=== PATIENT | male | born 1935 | race Caucasian/White ===

== ENCOUNTER → 2022-08-25 08:09 | Outpatient (BNVA) | payer MEDICARE, SELFPAY | PROVIDERS: Referring Provider Nurse Practitioner Family; Visit Provider Dermatology | DX: C44.42 Squamous cell carcinoma of skin of scalp and neck (principal) | CPT/HCPCS: 13121; 17311 ==

== ENCOUNTER → 2022-09-09 14:29 | Outpatient (BNVA) | payer MEDICARE, SELFPAY | PROVIDERS: Visit Provider Dermatology | DX: L57.0 Actinic keratosis (principal); Z48.02 Encounter for removal of sutures | CPT/HCPCS: 17000; 17003; 99213 ==

== ENCOUNTER → 2022-12-02 14:47 | Outpatient (BNVA) | payer MEDICARE, SELFPAY | PROVIDERS: Visit Provider Internal Medicine Cardiovascular Disease | DX: R07.9 Chest pain, unspecified (principal); R06.02 Shortness of breath; Z79.01 Long term (current) use of anticoagulants; Z82.49 Family history of ischemic heart disease and other diseases of the circulatory system; E11.9 Type 2 diabetes mellitus without complications; I10 Essential (primary) hypertension; R00.0 Tachycardia, unspecified; D50.9 Iron deficiency anemia, unspecified; E78.00 Pure hypercholesterolemia, unspecified | CPT/HCPCS: 80048; 83880; 85025; 93005; 99205 ==

== ENCOUNTER 2022-12-03 09:19 | Outpatient (CLI) | payer MEDICARE, SELFPAY ==
--- NOTE | 2022-12-03 10:00 | USCV_ITS ---
Lukas Nicole Age: 87 Gender: M : 1935 Exam Date: 12/03/2022 09:55 Ordering Phys: Cee Simpson MD ([email or web address]) Technologist: Reggie White Exam Location: [facility] Indication: chest pain BP: 120 / 70 HR: 97 Rhythm: Sinus Technical Quality: Adequate MEASUREMENTS (Male / Female) Normal Values 2D ECHO LV Diastolic Diameter PLAX 4.5 cm 4.2 - 5.9 / 3.9 - 5.3 cm LV Systolic Diameter PLAX 2.6 cm IVS Diastolic Thickness 1.4 cm 0.6 - 1.0 / 0.6 - 0.9 cm IVS Systolic Thickness 2.2 cm LVPW Diastolic Thickness 1.5 cm 0.6 - 1.0 / 0.6 - 0.9 cm LVPW Systolic Thickness 2.1 cm LVOT Diameter 2.0 cm LV Ejection Fraction 2D Teich 74.1 % LA Diameter 4.2 cm Aorta at Sinotubular Diameter 2.9 cm M-MODE Aortic Annulus Diameter 4.3 cm LA Ao Ratio MM 1.0 MV E Point Septal Separation 0.8 cm DOPPLER AV Peak Velocity 141.0 cm/s LVOT Peak Velocity 84.0 cm/s AV Area Cont Eq vti 2.0 cm squared AV Area Cont Eq pk 1.9 cm squared TR Peak Velocity 145.0 cm/s TR Peak Gradient 8.4 mmHg TV Peak E Velocity 149.0 cm/s Right Atrial Pressure 3.0 mmHg Pulmonary Artery Systolic Pressu 11.4 mmHg RV Acceleration Time 0.1 s FINDINGS Left Ventricle Normal left ventricular size and systolic function, EF 74%.moderate left ventricular hypertrophy. No regional wall motion abnormalities. Right Ventricle The right ventricle is normal in size and function. Right Atrium The right atrium is normal in size. Left Atrium The left atrium is normal in size. Mitral Valve Minimally thickened Aortic Valve Thickened aortic valve. Tricuspid Valve Minimally thickened .. Pulmonic Valve No gross abnormalities noted Pericardium Normal pericardium without effusion. Aorta Normal ascending aorta dimension. IVC The inferior vena cava appears normal. CONCLUSIONS Normal left ventricular size and systolic function, EF 74%.moderate left ventricular hypertrophy. No regional wall motion abnormalities. Thickened aortic and mitral valves Normal cardiac chamber sizes. Normal RV size ejection fraction. There is no pericardial effusion. No similar previous studies are available for comparison Dr Cee Simpson MD FAC (Electronically Signed) Final Date: 03 December 2022 16:49 S
== END 2022-12-03 09:20 | disposition home or self-care (01) ==
PROVIDERS: Visit Provider Internal Medicine Cardiovascular Disease
DX: R06.09 Other forms of dyspnea (principal); R07.9 Chest pain, unspecified; I08.0 Rheumatic disorders of both mitral and aortic valves
CPT/HCPCS: 93306

== ENCOUNTER 2022-12-04 11:19 | Outpatient (CLI) | payer MEDICARE, SELFPAY ==
[2022-12-04 12:05] LABS: D Dimer 1.08 ug/mLFEU (0-0.59)
[2022-12-04 12:11] LABS: Troponin T (5th) Once 37 ng/L (0-15)
--- NOTE | 2022-12-04 15:45 | CTR_ITS ---
PROCEDURE INFORMATION: Exam: CTA Chest With Contrast Exam date and time: 12/04/2022 3:47 PM Age: 87 years old Clinical indication: Abnormal findings; Abnormal diagnostic tests; Elevated d-dimer; Shortness of breath; Additional info: Chest pain, SOB TECHNIQUE: Imaging protocol: Computed tomographic angiography of the chest with contrast. Exam focused on the arteries. 3D rendering (Not supervised by radiologist): MIP and/or 3D reconstructed images were created by the technologist. Radiation optimization: All CT scans at this facility use at least one of these dose optimization techniques: automated exposure control; mA and/or kV adjustment per patient size (includes targeted exams where dose is matched to clinical indication); or iterative reconstruction. Contrast material: OMNI 350; Contrast volume: 95 ml; Contrast route: INTRAVENOUS (IV); REPORTING DATA: Count of CT and Cardiac NM exams in prior 12 months: This patient has received 0 known CTs and 0 known cardiac nuclear medicine studies in the 12 months prior to the current study. COMPARISON: No relevant prior studies available. RADIATION DOSE METRICS: Total DLP (mGy-cm): 442.41 FINDINGS: Pulmonary arteries: Pulmonary vasculature is adequately opacified without filling defects or other evidence of acute pulmonary embolism. Aorta: Scattered atherosclerotic changes of the thoracic aorta. No aortic aneurysm. Lungs: Lung volumes are decreased with mild hypoventilatory changes at the lung bases. No infiltrates or nguyễn pulmonary edema. Pleural spaces: Unremarkable. No pneumothorax. No pleural effusion. Heart: Heart is mildly enlarged. Moderate calcification of coronary arteries. No significant pericardial effusion. Mediastinal space: Scattered mediastinal calcifications secondary to chronic granulomatous disease. Multiple small mediastinal lymph nodes likely benign based on size criteria. Lymph nodes: See Mediastinal space finding. Liver: Liver has a cirrhotic contour. Gallbladder and bile ducts: Multiple gallstones partially visualized. Spleen: Spleen is partially visualized, enlarged. Bones/joints: Degenerative changes both shoulder joints with loose bodies present. Prominent degenerative changes both sternoclavicular joints with numerous loose bodies. Soft tissues: Unremarkable. CT/CT angio chest PE protcl [id number] IMPRESSION: 1. Negative CT angiogram of the chest. No evidence of acute pulmonary embolism. 2. Multiple additional chronic findings as above.
== END 2022-12-04 11:20 | disposition home or self-care (01) ==
PROVIDERS: Visit Provider Internal Medicine Cardiovascular Disease
DX: R00.0 Tachycardia, unspecified (principal); R06.02 Shortness of breath; R07.89 Other chest pain; R79.1 Abnormal coagulation profile; I10 Essential (primary) hypertension; I25.10 Atherosclerotic heart disease of native coronary artery without angina pectoris
CPT/HCPCS: 36415; 71275; 84484; 85378; Q9967

== ENCOUNTER 2022-12-21 00:19 | Emergency (ER) | payer MEDICARE, SELFPAY ==
[2022-12-21] VITALS (30 sets, daily range): BP systolic 88–148; BP diastolic 48–92; PULSE 87–133; RESP 13–34; TEMP 36.9; O2SAT 89–100; BMI 32.1
--- NOTE | 2022-12-21 00:21 | XRR_ITS ---
PROCEDURE INFORMATION: Exam: XR Chest Exam date and time: 12/21/2022 12:26 AM Age: 87 years old Clinical indication: Chest pressure; Patient HX: C/O chest pain TECHNIQUE: Imaging protocol: Radiologic exam of the chest. Views: 1 view. COMPARISON: CT angio chest PE protcl [id number] 12/04/2022 3:47 PM FINDINGS: Lungs: Unremarkable. No consolidation. Pleural spaces: Unremarkable. No pleural effusion. No pneumothorax. Heart/Mediastinum: Mild cardiomegaly. Bones/joints: Unremarkable. XR/XR chest 1V portable [id number] IMPRESSION: Mild cardiomegaly.
--- NOTE | 2022-12-21 00:30 | ECG_ITS ---
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 Measurements Intervals Ashley Rate: 116 P: 0 VT: 0 QRS: -28 QRSD: 158 T: 0 QT: 295 QTc: 410 Interpretive Statements ATRIAL FLUTTER/TACHYCARDIA WITH RAPID VENTRICULAR RESPONSE INDETERMINATE AXIS RIGHT BUNDLE BRANCH BLOCK [120+ ms QRS DURATION, UPRIGHT V1, 40+ ms S IN I/aVL/V4/V5/V6] Compared to ECG 12/02/2022 15:02:35 No significant changes Electronically Signed On 12-21-2022 10:56:35 CDT by Bakari Peoples M.D. [id number]
[2022-12-21 00:45] LABS: Basophils # 0.1 10^3/uL (0.0-0.1); Basophils % 0.5 %; Eosinophils # 0.2 10^3/uL (0.0-0.8); Eosinophils % 2.1 %; Lymphocytes # 3.4 10^3/uL (0.8-4.8); Lymphocytes % 32.9 %; Mean Corpuscular HGB Conc 30.7 g/dL (30-55); Mean Corpuscular Hemoglobin 28.1 pg (27-33); Mean Corpuscular Volume 91.4 fl (82-101); Mean Platelet Volume 10.7 fL (7.4-10.4); Monocytes # 0.8 10^3/uL (0.2-0.9); Monocytes % 8.1 %; Neutrophils # 5.69 10^3/uL (1.8-7.7); Neutrophils % 55.6 %; Nucleated Red Blood Cells % 0.2 %; Platelet Count 129 10^3/cmm (157-399); Red Blood Count 2.21 10^6/uL (3.85-5.65); Red Cell Distribution Width 19.2 % (12.1-15.1); White Blood Count 10.22 10^3/uL (3.29-11.43)
--- NOTE | 2022-12-21 01:02 | ECG_ITS ---
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 Measurements Intervals Thornton Rate: 106 P: -61 IN: 190 QRS: -29 QRSD: 156 T: 13 QT: 388 QTc: 517 Interpretive Statements SINUS TACHYCARDIA INDETERMINATE AXIS RIGHT BUNDLE BRANCH BLOCK [120+ ms QRS DURATION, UPRIGHT V1, 40+ ms S IN I/aVL/V4/V5/V6] INTERPRETATION BASED ON A DEFAULT AGE OF 40 YEARS Compared to ECG 12/21/2022 00:30:00 Atrial flutter no longer present Electronically Signed On 12-21-2022 10:54:40 CDT by Bakari Peoples M.D. [id number]
[2022-12-21 01:03] LABS: Hematocrit 20.2 % (37-53)
--- NOTE | 2022-12-21 01:04 | CTR_ITS ---
PROCEDURE INFORMATION: Exam: CTA Chest With Contrast Exam date and time: 12/21/2022 1:27 AM Age: 87 years old Clinical indication: Pain and abnormal findings; Abnormal lab test; Other: Low hemoglobin/hematocrit; Hypotension; Other: Hematoemesis. Patient HX: Patient initially presented to er with chest heaviness. While in er became suddenely hypotensive with a witnessed episode of hematemesis. Hemoglobin of 6.2 and hematocrit of 20.2; Additional info: Anemia, chest and abd pain TECHNIQUE: Imaging protocol: Computed tomographic angiography of the chest with contrast. Exam focused on the arteries. 3D rendering (Not supervised by radiologist): MIP and/or 3D reconstructed images were created by the technologist. Radiation optimization: All CT scans at this facility use at least one of these dose optimization techniques: automated exposure control; mA and/or kV adjustment per patient size (includes targeted exams where dose is matched to clinical indication); or iterative reconstruction. REPORTING DATA: Count of CT and Cardiac NM exams in prior 12 months: This patient has received [address] and 0 known cardiac nuclear medicine studies in the 12 months prior to the current study. COMPARISON: CT angio chest PE [facility] [id number] 12/04/2022 3:47 PM FINDINGS: Pulmonary arteries: Normal. No pulmonary emboli. Aorta: Unremarkable. No aortic aneurysm. No aortic dissection. Lungs: Unremarkable. No consolidation. No masses. Pleural spaces: Unremarkable. No pneumothorax. No pleural effusion. Heart: Mild cardiomegaly. Coronary arteries: Multivessel atherosclerotic disease which involves the coronary arteries. Lymph nodes: Unremarkable. No enlarged lymph nodes. Intraperitoneal space: Please see the CT scan of the abdomen for description of the upper abdomen. Bones/joints: Unremarkable. No acute fracture. Soft tissues: Unremarkable. CT/CT [facility] [id number] IMPRESSION: 1. Multivessel atherosclerotic disease which involves the coronary arteries. 2. Mild cardiomegaly. 3. No evidence for pulmonary embolus.
[2022-12-21 01:08] LABS: Troponin(5th) Baseline 47 ng/L (0-15)
--- NOTE | 2022-12-21 01:14 | ED_ITS ---
Documented by User: ALEX Garcia 12/21/22 01:22 HPI - Chest Pain General: Chief Complaint: Chest Pain Stated Complaint: CP Time Seen by Provider: 12/21/22 00:21 History of Present Illness: Lukas Nicole is an 87-year-old male who presents to the emergency department this evening with complaints of palpitations, chest pain, shortness of breath. Reports he has had increasing fatigue and weakness over the last month. He has been evaluated by cardiology?Dr. Simpson and has follow-up scheduled for Thursday. Patient notes that this evening he was trying to get up with the assistance of his and he fell backwards. He landed on the bed and denies striking his head. Patient had atrial fibrillation RVR noted on the monitor in route with EMS. His pulse is currently in the 130s. He has a history of diabetes, GERD, high cholesterol, hypertension, CVA, squamous cell carcinoma, cardiovascular disease, and possible heart failure Associated symptoms: Reports dyspnea, nausea and palpitations; Deny abdominal pain, fever(s) or vomiting Risk Factors: Coronary artery disease risk factors: diabetes, hyperlipidemia and hypertension Thoracic aortic dissection risk factors: longstanding hypertension Pulmonary embolism risk factors: immobilization Review of Systems General: Reports: 10 or more systems reviewed and unremarkable except in HPI and below Const: Reports: change in appetite, change in weight, fatigue, malaise and change in sleep pattern; Denies: fever(s) or chills Eyes: Denies: change in vision, eye discomfort, eye discharge or eye redness ENMT: Denies: throat pain, enlarged tonsils, odynophagia, hoarseness, ear or mastoid pain, ear discharge, change in hearing, tinnitus, nasal discharge, nasal congestion, post nasal drip or sinus pain Card: Reports: palpitations, irregular heart rhythm, edema, dyspnea on exertion and orthopnea; Denies: chest pain or leg pain with exertion Resp: Reports: dyspnea; Denies: productive cough, non-productive cough, wheezing, stridor or chest congestion GI: Reports: nausea; Denies: abdominal pain, vomiting, dysphagia, diarrhea, constipation, bloating, GI cramping or hematochezia : Denies: flank pain, dysuria, urinary frequency, urinary urgency, urinary hesitancy, oliguria or hematuria Musc: Denies: neck pain, back pain, extremity pain, joint pain, joint swelling, joint redness, joint warmth or muscle weakness Skin/Breast: Denies: rash, pruritus, erythema, photosensitivity or new lesions Neuro: Denies: headache(s), numbness in extremities, weakness in extremities, sensory changes, lack of coordination, difficulty walking, frequent falls, dizziness, confusion, Slurred speech present, difficulty communicating thoughts, seizure-like activity or involuntary movements Endo: Denies: polyuria, polydipsia or tired all the time Rodriguez/Lymph: Denies: easy bruising or easy bleeding PFSH ED PFSH: Medical History (Updated 12/21/22 @ 03:01 by Ashish Sampson DO) Degenerative joint disease Diabetes Gall stones GERD (gastroesophageal reflux disease) Hearing reduced High cholesterol Hypertension Inflammatory arthritis Squamous cell carcinoma Unspecified cerebral artery occlusion with cerebral infarction Unspecified disorder of prostate Surgical History (Updated 12/02/22 @ 15:37 by Cee Simpson MD) History of back surgery 1974 Hx of hand surgery Physical Exam Const: COMMON NORMALS: no acute distress, patient oriented x3 and alert GENERAL APPEARANCE: cooperative ORIENTATION/CONSCIOUSNESS: Yes awake, Yes oriented to person, Yes oriented to place and Yes oriented to time HENMT: COMMON NORMALS: normocephalic and atraumatic HEAD & SCALP: normocephalic and atraumatic FACE & SINUS: normal facial exam Eye: COMMON NORMALS: Equal, round and reactive pupils present and EOMs intact bilaterally GENERAL EYE: appearance normal, both eyes and all related structures ALIGNMENT: Yes alignment normal PERIORBITAL: periorbital findings normal PUPIL: Yes Equal, round and reactive pupils present Neck/C-Spine: COMMON NORMALS: full ROM GENERAL: Yes normal visual inspection Lymph: LYMPHATIC: no lymphadenopathy noted Chest: COMMONS NORMALS: normal inspection of the chest Breast/axilla inspection: Yes no chest deformity, asymmetry, normal contours, no nodules, masses, tenderness Resp: EFFORT & INSPECTION: Yes symmetric chest movement, Yes tachypneic, Yes respiratory distress and Yes uses accessory muscles AUSCULTATION: diminished lung sounds diffuse Cardio: COMMON NORMALS: Peripheral pulses 2+ throughout RATE: tachycardic RHYTHM: abnormal rhythm PERIPHERAL PULSES: Peripheral pulses 2+ throughout GI: COMMON NORMALS: Normal to inspection, nondistended, normoactive bowel sounds present, Soft to palpation, non-tender and No hepatosplenomegaly present INSPECTION: Yes normal to inspection AUSCULTATION: Yes normoactive bowel sounds PALPATION: Yes Soft to palpation and Yes No hepatosplenomegaly present RECTAL EXAM: Yes deferred Extremity: COMMON NORMALS: normal to inspection GENERAL: Yes normal exam except as noted Neuro: COMMON NORMALS: patient oriented x3 SENSORIUM/ORIENTATION: Yes alert, Yes oriented to person, Yes oriented to place and Yes oriented to time CRANIAL NERVES: Yes CN normal except as noted Psych: COMMON NORMALS: mental status grossly normal, Normal thought process present, cooperative, activity/motor behavior normal, denies homicidal ideation and denies suicidal ideation THOUGHT PROCESS: Normal thought process present Skin: COMMON NORMALS: no rashes or lesions noted, no wounds and turgor normal GENERAL SKIN EXAM: no rashes or lesions noted and turgor normal Course Vital Signs: Vital signs: Vital Signs Temperature 98.5 F 12/21/22 00:44 Pulse Rate 98 12/21/22 04:15 Respiratory Rate 23 H 12/21/22 04:15 Blood Pressure 126/70 12/21/22 04:15 Pulse Oximetry 97 12/21/22 04:10 Oxygen Delivery Me thod Nasal Cannula 12/21/22 02:10 Oxygen Flow Rate 4 12/21/22 02:10 MDM - Chest Pain Medical Decision Making Differential diagnosis included unstable angina, AMI, A fib with RVR, heart failure, Transferring care to Dr. Sampson Lab Data 12/21/22 00:38 12/21/22 00:38 Radiology Impressions Chest/Abdomen/Pelvis CTA 12/21/22 01:04 IMPRESSION: 1. Multivessel atherosclerotic disease which involves the coronary arteries. 2. Mild cardiomegaly. 3. No evidence for pulmonary embolus. Chest X-Ray 12/21/22 02:15 IMPRESSION: 1. Tip of the central venous catheter projects over the right atrium. 2. Cardiomegaly. Laboratory Results WBC 10.22 10^3/uL (3.29-11.43) 12/21/22 00:38 RBC 2.21 10^6/uL (3.85-5.65) L 12/21/22 00:38 Hgb 6.20 g/dL (11.27-16.99) L* 12/21/22 00:38 Hct 20.2 % (37-53) L* 12/21/22 00:38 MCV 91.4 fl (82-101) 12/21/22 00:38 MCH 28.1 pg (27-33) 12/21/22 00:38 MCHC 30.7 g/dL (30-55) 12/21/22 00:38 RDW 19.2 % (12.1-15.1) H 12/21/22 00:38 Plt Count 129 10^3/cmm (157-399) L 12/21/22 00:38 MPV 10.7 fL (7.4-10.4) H 12/21/22 00:38 Neut % (Auto) 55.6 % 12/21/22 00:38 Lymph % (Auto) 32.9 % 12/21/22 00:38 [place] % (Auto) 8.1 % 12/21/22 00:38 Eos % (Auto) 2.1 % 12/21/22 00:38 Baso % (Auto) 0.5 % 12/21/22 00:38 Neut # (Auto) 5.69 10^3/uL (1.8-7.7) 12/21/22 00:38 Lymph # (Auto) 3.4 10^3/uL (0.8-4.8) 12/21/22 00:38 [place] # (Auto) 0.8 10^3/uL (0.2-0.9) 12/21/22 00:38 Eos # (Auto) 0.2 10^3/uL (0.0-0.8) 12/21/22 00:38 Baso # (Auto) 0.1 10^3/uL (0.0-0.1) 12/21/22 00:38 Nucleated RBC % (auto) 0.2 % 12/21/22 00:38 Nucleated RBCs # 0.0 /100WBC 12/21/22 00:38 PT 18.50 SECONDS (12.1-14.9) H 12/21/22 00:54 INR 1.49 (0.8-1.2) H 12/21/22 00:54 APTT 40.3 SECONDS (23.9-36.7) H 12/21/22 00:54 D-Dimer 0.81 ug/mLFEU (0-0.59) H 12/21/22 00:54 Sodium 139 mmol/L (136-145) 12/21/22 00:38 Potassium 4.1 mmol/L (3.5-5.1) 12/21/22 00:38 Chloride 100 mmol/L (98-107) 12/21/22 00:38 Carbon Dioxide 21 mmol/L (22-29) L 12/21/22 00:38 Anion Gap 22.1 (5-19) H 12/21/22 00:38 BUN 71 mg/dL (8-23) H 12/21/22 00:38 Creatinine 1.1 mg/dL (0.7-1.2) 12/21/22 00:38 GFR Calculation Not Reportable 12/21/22 00:38 Glucose 105 mg/dL (65-115) 12/21/22 00:38 Calculated Osmolality 309 mOsm/kg (285-295) H 12/21/22 00:38 Calcium 9.1 mg/dL (8.5-10.5) 12/21/22 00:38 Total Bilirubin 0.2 mg/dL (0.15-1.2) 12/21/22 00:38 AST 18 U/L (0-40) 12/21/22 00:38 ALT 9 U/L (0-41) 12/21/22 00:38 Alkaline Phosphatase 65 U/L (40-130) 12/21/22 00:38 Troponin T Baseline 47 ng/L (0-15) H 12/21/22 00:38 Troponin T 120 Minute 43.53 ng/L (0-15) H 12/21/22 02:10 Delta Troponin T -3.47 ABS# (0-10) L 12/21/22 02:10 NT-Pro-B Natriuret Pep 989 pg/mL (0-450) H 12/21/22 00:38 Total Protein 7.6 g/dL (6.6-8.7) 12/21/22 00:38 Albumin 2.7 g/dL (3.5-5.2) L 12/21/22 00:38 Globulin 4.9 g/dL (1.3-4.6) H 12/21/22 00:38 Blood Type A Positive 12/21/22 03:28 Rho(D) Type Positive 12/21/22 03:28 Antibody Screen Negative 12/21/22 03:28 Crossmatch See Detail 12/21/22 03:28 Discharge Plan Discharge Patient Disposition: Xfer Short-Term Hosp Clinical Impression: Acute upper gastrointestinal bleeding Condition: Critical Referrals: Kristen Addison FNP [Primary Care Provider] - Coding Level of Care Code ED General Manager [employer] for Chg Fwd Documented by User: Ashish Sampson DO 12/21/22 05:53 HPI - Chest Pain General: Chief Complaint: Chest Pain Stated Complaint: CP Time Seen by Provider: 12/21/22 00:21 PFSH ED PFSH: Medical History (Updated 12/21/22 @ 03:01 by Ashish Sampson DO) Degenerative joint disease Diabetes Gall stones GERD (gastroesophageal reflux disease) Hearing reduced High cholesterol Hypertension Inflammatory arthritis Squamous cell carcinoma Unspecified cerebral artery occlusion with cerebral infarction Unspecified disorder of prostate Surgical History (Updated 12/02/22 @ 15:37 by Cee Simpson MD) History of back surgery 1975 Hx of hand surgery Procedures Central Line Placement Right IJ: Time Out Performed: Yes Patient Placed on Monitor/Pulse Ox: Yes Prep: mask, gown and gloves Central Line Prep: Chlorhexidine scrub and sterile drapes applied Local Anesthetic: lidocaine 1% Ultrasound Used for Placement: Yes Central Line Lumen Inserted: triple Post Procedure: sutured in place, good blood return, all ports aspirated, flushed, capped and sterile dressing applied Post Procedure X-Ray: tip of catheter in good position and no pneumothorax seen Patient Tolerated Procedure: well and no complications Complications: none Course Vital Signs: Vital signs: Vital Signs Temperature 98.5 F 12/21/22 00:44 Pulse Rate 98 12/21/22 04:15 Respiratory Rate 23 H 12/21/22 04:15 Blood Pressure 126/70 12/21/22 04:15 Pulse Oximetry 97 12/21/22 04:10 Oxygen Delivery Me thod Nasal Cannula 12/21/22 02:10 Oxygen Flow Rate 4 12/21/22 02:10 MDM - Chest Pain Medical Decision Making Differential diagnosis included unstable angina, AMI, A fib with RVR, heart failure, Transferring care to Dr. Sampson 87-year-old gentleman originally seen by MIGUEL ÁNGEL Bullock. I agree with her history, evaluation, and initial treatment. Shortly after his evaluation by her, the patient alarmed with a low blood pressure. He then threw up coffee- ground black emesis. There was quite a bit of volume. His airway was suctioned. He remained awake and alert. He did this again, and again was suctioned. Lab called with a critical value of a hemoglobin of 6.2. Following the second episode of emesis, his heart rate fell and the patient briefly became nonresponsive. We have had a discussion with the patient and his about resuscitation. He did not want to be resuscitated with chest compressions or ventilatory support. She agreed with this. When his heart rate fell below 40, 1 mg of epinephrine was given. The patient remained nonresponsive for several seconds, but maintained his oxygenation above 90%. Shortly thereafter, his heart rate increased, and he was started at that point on norepinephrine drip to support blood pressure and heart rate. He is remained awake and alert since that time. Central line was placed. He has received 1 unit of O- blood. Receiving a second. He is received 80 mg of Protonix, octreotide, and tranexamic acid. CTA of the chest abdomen pelvis was performed. It did not show a source of the bleeding. Several nonacute findings were listed. We do not have gastroenterology available at this facility. Both facilities in [place] are on diversion. We have spoken with the transfer center at [facility]. Their critical care team is to call back. Patient has been accepted at [facility]. He is going by air transport. On departure, the patient is awake alert and talking. He did have around 1.5 L of output from his NG tube. Lab Data 12/21/22 00:38 12/21/22 00:38 Radiology Impressions Chest/Abdomen/Pelvis CTA 12/21/22 01:04 IMPRESSION: 1. Multivessel atherosclerotic disease which involves the coronary arteries. 2. Mild cardiomegaly. 3. No evidence for pulmonary embolus. Chest X-Ray 12/21/22 02:15 IMPRESSION: 1. Tip of the central venous catheter projects over the right atrium. 2. Cardiomegaly. Laboratory Results WBC 10.22 10^3/uL (3.29-11.43) 12/21/22 00:38 RBC 2.21 10^6/uL (3.85-5.65) L 12/21/22 00:38 Hgb 6.20 g/dL (11.27-16.99) L* 12/21/22 00:38 Hct 20.2 % (37-53) L* 12/21/22 00:38 MCV 91.4 fl (82-101) 12/21/22 00:38 MCH 28.1 pg (27-33) 12/21/22 00:38 MCHC 30.7 g/dL (30-55) 12/21/22 00:38 RDW 19.2 % (12.1-15.1) H 12/21/22 00:38 Plt Count 129 10^3/cmm (157-399) L 12/21/22 00:38 MPV 10.7 fL (7.4-10.4) H 12/21/22 00:38 Neut % (Auto) 55.6 % 12/21/22 00:38 Lymph % (Auto) 32.9 % 12/21/22 00:38 [place] % (Auto) 8.1 % 12/21/22 00:38 Eos % (Auto) 2.1 % 12/21/22 00:38 Baso % (Auto) 0.5 % 12/21/22 00:38 Neut # (Auto) 5.69 10^3/uL (1.8-7.7) 12/21/22 00:38 Lymph # (Auto) 3.4 10^3/uL (0.8-4.8) 12/21/22 00:38 [place] # (Auto) 0.8 10^3/uL (0.2-0.9) 12/21/22 00:38 Eos # (Auto) 0.2 10^3/uL (0.0-0.8) 12/21/22 00:38 Baso # (Auto) 0.1 10^3/uL (0.0-0.1) 12/21/22 00:38 Nucleated RBC % (auto) 0.2 % 12/21/22 00:38 Nucleated RBCs # 0.0 /100WBC 12/21/22 00:38 PT 18.50 SECONDS (12.1-14.9) H 12/21/22 00:54 INR 1.49 (0.8-1.2) H 12/21/22 00:54 APTT 40.3 SECONDS (23.9-36.7) H 12/21/22 00:54 D-Dimer 0.81 ug/mLFEU (0-0.59) H 12/21/22 00:54 Sodium 139 mmol/L (136-145) 12/21/22 00:38 Potassium 4.1 mmol/L (3.5-5.1) 12/21/22 00:38 Chloride 100 mmol/L (98-107) 12/21/22 00:38 Carbon Dioxide 21 mmol/L (22-29) L 12/21/22 00:38 Anion Gap 22.1 (5-19) H 12/21/22 00:38 BUN 71 mg/dL (8-23) H 12/21/22 00:38 Creatinine 1.1 mg/dL (0.7-1.2) 12/21/22 00:38 GFR Calculation Not Reportable 12/21/22 00:38 Glucose 105 mg/dL (65-115) 12/21/22 00:38 Calculated Osmolality 309 mOsm/kg (285-295) H 12/21/22 00:38 Calcium 9.1 mg/dL (8.5-10.5) 12/21/22 00:38 Total Bilirubin 0.2 mg/dL (0.15-1.2) 12/21/22 00:38 AST 18 U/L (0-40) 12/21/22 00:38 ALT 9 U/L (0-41) 12/21/22 00:38 Alkaline Phosphatase 65 U/L (40-130) 12/21/22 00:38 Troponin T Baseline 47 ng/L (0-15) H 12/21/22 00:38 Troponin T 120 Minute 43.53 ng/L (0-15) H 12/21/22 02:10 Delta Troponin T -3.47 ABS# (0-10) L 12/21/22 02:10 NT-Pro-B Natriuret Pep 989 pg/mL (0-450) H 12/21/22 00:38 Total Protein 7.6 g/dL (6.6-8.7) 12/21/22 00:38 Albumin 2.7 g/dL (3.5-5.2) L 12/21/22 00:38 Globulin 4.9 g/dL (1.3-4.6) H 12/21/22 00:38 Blood Type A Positive 12/21/22 03:28 Rho(D) Type Positive 12/21/22 03:28 Antibody Screen Negative 12/21/22 03:28 Crossmatch See Detail 12/21/22 03:28 Critical Care Time Critical Care Time: Critical Care Time: Yes Total Critical Care Time: 60 Attestation: This case had a high probability of a clinically significant, sudden, or life threatening deterioration of this patient's condition which required my full and direct attention, intervention and personal management. Time excludes any procedures performed such as central line placement. Discharge Plan Discharge Patient Disposition: Xfer Short-Term Hosp Clinical Impression: Acute upper gastrointestinal bleeding Condition: Critical Referrals: Kristen Addison FNP [Primary Care Provider] - Coding Level of Care Code ED General Manager [employer] for Ronaldo Lucas
[2022-12-21] MEDS: sodium chloride 0.9% 1,000 ML 999 ML IV (01:15)
[2022-12-21 01:18] LABS: Alanine Aminotransferase 9 U/L (0-41); Albumin Level 2.7 g/dL (3.5-5.2); Alkaline Phosphatase 65 U/L (40-130); Anion Gap 22.1 (5-19); Aspartate Amino Transferase 18 U/L (0-40); Blood Urea Nitrogen 71 mg/dL (8-23); Calcium 9.1 mg/dL (8.5-10.5); Carbon Dioxide 21 mmol/L (22-29); Chloride 100 mmol/L (98-107); Globulin 4.9 g/dL (1.3-4.6); Glucose 105 mg/dL (65-115); NT Pro B Type Natriuretic Pept 989 pg/mL (0-450); Osmolality Calculated 309 mOsm/kg (285-295); Potassium 4.1 mmol/L (3.5-5.1); Sodium 139 mmol/L (136-145); Total Bilirubin 0.2 mg/dL (0.15-1.2); Total Protein 7.6 g/dL (6.6-8.7)
[2022-12-21] MEDS: ondansetron 2 mg/ML SDV 2 mL 8 MG IVP (01:25)
[2022-12-21] MEDS: iohexol 350 mg/mL 500 mL Btl (per mL) IV (01:41)
[2022-12-21] MEDS: EPINEPHrine 0.1 mg/mL SYR 10 mL IVP (01:44)
[2022-12-21] MEDS: sodium chloride 0.9% 100 mL Bag 50 ML IV (01:58)
--- NOTE | 2022-12-21 02:15 | XRR_ITS ---
PROCEDURE INFORMATION: Exam: XR Chest Exam date and time: 12/21/2022 2:17 AM Age: 87 years old Clinical indication: Other vascular access device placement or adjustment; Central line, tunnelled; Patient HX: Check S/P central line placement TECHNIQUE: Imaging protocol: Radiologic exam of the chest. Views: 1 view. COMPARISON: CR (CHEST, ) 12/21/2022 12:26 AM FINDINGS: Tubes, catheters and devices: Tip of the central venous catheter projects over the right atrium. A G-tube passes below the hemidiaphragms. Lungs: Unremarkable. No consolidation. Pleural spaces: Unremarkable. No pleural effusion. No pneumothorax. Heart/Mediastinum: Cardiomegaly. Bones/joints: Unremarkable. XR/XR chest 1V portable [id number] IMPRESSION: 1. Tip of the central venous catheter projects over the right atrium. 2. Cardiomegaly.
[2022-12-21 02:26] LABS: INR 1.49 (0.8-1.2)
[2022-12-21 02:27] LABS: Partial Thromboplastin Time 40.3 SECONDS (23.9-36.7)
[2022-12-21 02:30] LABS: D Dimer 0.81 ug/mLFEU (0-0.59)
[2022-12-21 02:38] LABS: Troponin 5 2HR 43.53 ng/L (0-15); Troponin 5 2HR Delta -3.47 ABS# (0-10)
[2022-12-21] MEDS: pantoprazole 40 mg SDV 80 MG IVP (02:43)
[2022-12-21] MEDS: octreotide 100 mcg/mL SDV 50 MCG IVP (02:46)
[2022-12-21] MEDS: fentaNYL 50 mcg/mL INJ 2mL IVP ×2 (02:48→03:47)
[2022-12-21] MEDS: metoclopramide 5 mg/mL SDV 2 mL 10 MG IVP (03:27)
--- NOTE | 2022-12-21 04:46 | PC.NURSE ---
Pt was transfused emergent blood. The first unit was started at 0250. Pre transfusion vitals 0201 HR:100 O2: 98% ON 4L TEMP:98.3 AUX BP: 120/55 TRANSFUSION STARTED 0205 HR: 96 O2% 97 RESP 17 TEMP: 96.5 AUX BP: 88/57 BEAR HUGGER PLACED ON PT DUE TO LOW TEMPS 0210 HR: 98 O2% 99 TEMP: 96.9 AUX BP: 101/50 0220 HR: 91 O2% 97 TEMP: 97.7 BP: 111/58 0231 HR: 87 O2% 100 TEMP: 98.1 BP: 119/61 0240 END OF 1ST UNIT HR: 85 O2%: 100 RESP 20 TEMP 97.5 BP: 122/62 0255 HR: 91 O2% 99 TEMP: 96.9 BP: 120/79 0300 START OF 2ND UNIT HR: 92 O2% 96 TEMP 97.6 BP: 129/69 0310 HR: 96 O2% 98 TEMP 96.7 BP: 137/71 0330 HR:93 O2% 98 TEMP: 96.7 BP: 130/73 0410 END OF 2ND UNIT HR:94 O2%: 97 BP: 123/69
== END 2022-12-21 04:40 | disposition short-term general hospital (02) ==
PROVIDERS: Nurse Practitioner; Emergency Provider Emergency Medicine; PCP Nurse Practitioner Family
DX: K92.2 Gastrointestinal hemorrhage, unspecified (principal); I95.1 Orthostatic hypotension
CPT/HCPCS: 36556; 51702; 71045; 71275; 74174; 80053; 83880; 84484; 85025; 85378; 85610; 85730; 86850; 86900; 86920; 93005; 96365; 96367; 96375; 96376; 99291; 99292; C1751; C9113; J0171; J2354; J2405; J2765; J3010; J7030; J7060; P9040; Q9967